=== PATIENT | female | born 1965 | race Two or more races ===

== ENCOUNTER 2022-09-28 04:59 | Emergency (ER) | payer OTHER ==
[~2022-09-28] VITALS: Ht 170.2 cm; Wt 61.2 kg
[2022-09-28] MEDS ORDERED: CIPRO500 MG PO (08:09)
[2022-09-28] MEDS ORDERED: PYRIDIUM DS200 MG PO (08:09)
== END 2022-09-28 08:26 ==
LOC: ER 04:59
DX: N39.0 Urinary tract infection, site not specified (principal); R31.9 Hematuria, unspecified; R30.0 Dysuria; Z88.8 Allergy status to other drugs, medicaments and biological substances

== ENCOUNTER → 2023-09-23 | Emergency (ER) | payer OTHER ==
[~2023-09-23] VITALS: Ht 167.6 cm; Wt 70.3 kg
[~2023-09-23] MED LIST: CIPRO500 MG PO; GLUMETZA1000 MG PO; GRALISE600 MG PO; KETOROLAC TROMETHAMINE 30 MG VIAL IM ONE; LIDOCAINE HCL/EPINEPHRINE 50ML VIAL IJ ONE; MEPERIDINE HCL/PF 25 MG/ML VIAL IM ONE; ORPHENADRINE CITRATE 30 MG/ML AMPUL IM ONE; PROMETHAZINE HCL 25 MG/ML AMPUL IM ONE; PYRIDIUM DS200 MG PO; SYNTHROID112 MCG PO; ZANAFLEX4 M1 PO; [UNRECOGNIZED DRUG - OTHER] PO
[2023-09-23 21:13] LABS: PH,URINE 5.5 (5.0-8.0); URINE APPEARANCE Clear; URINE BILIRRUBIN Negative (NEGATIVE); URINE BLOOD Negative; URINE COLOR Yellow; URINE GLUCOSE Negative (NEGATIVE); URINE LEUKOCYTE Negative; URINE NITRATE Negative; URINE PROTEIN Negative (NEGATIVE); URINE UROBILINOGEN 0.2 E.U./dl
[2023-09-23 21:17] LABS: URINE BACTERIA 88.1 uL (0.0-1933); URINE EPITHELIAL CELLS 2.7 uL (0.0-38.8); URINE RBC 1.8 uL (0.0-20.8); URINE WBC 1.8 uL (0.0-23.2)
== END | disposition home or self-care (01) ==
LOC: ER 18:54
PROVIDERS: Nurse Practitioner Family
DX: M54.50 Low back pain, unspecified (principal); Z88.8 Allergy status to other drugs, medicaments and biological substances; E03.9 Hypothyroidism, unspecified; E78.49 Other hyperlipidemia; E11.9 Type 2 diabetes mellitus without complications; Z79.84 Long term (current) use of oral hypoglycemic drugs; Z20.822 Contact with and (suspected) exposure to COVID-19
CPT/HCPCS: 36415; 96372; 99282; J1885; J2250; J2360; J3490